=== PATIENT | male | born 1980 | race Caucasian/White ===

== ENCOUNTER 2023-03-23 12:14 | Emergency (ER) | payer SELFPAY ==
--- NOTE | 2023-03-23 12:55 | RAD REPORT ---
EXAM DESCRIPTION: Richie Single View03/23/2023 12:43 pm CLINICAL HISTORY: cough COMPARISON: none FINDINGS: The lungs appear clear of acute infiltrate. The heart is normal size IMPRESSION: No acute abnormalities displayed
[2023-03-23 13:04] LABS: Specific Gravity 1.015 (1.005-1.030); Urine Bilirubin NEGATIVE (Negative); Urine Blood Negative (Negative); Urine Clarity Clear (Clear); Urine Color Light-Yellow (Yellow); Urine Glucose NEGATIVE (Negative); Urine Protein NEGATIVE (Negative); Urine Urobilinogen Normal (Normal); Urine pH 5.5 (5.0-7.0)
[2023-03-23 13:05] LABS: Absolute Lymphocytes (CBC) 1.4 K/uL (0.7-4.9); Hematocrit 37.6 % (39.6-49.0); Lymphocytes % 11.7 % (15.3-44.8); MCV 88.8 fL (80-100); MPV 8.1 fL (7.6-11.3); Platelets 273 thou/uL (152-406); RBC Red Blood Cell Count 4.23 M/uL (4.33-5.43)
[2023-03-23] MEDS ORDERED: NA CHLORIDE 0.9% 2,000 ML ONE (13:11)
[2023-03-23 13:12] LABS: Protime INR 1.07
[2023-03-23 13:13] LABS: Barbiturates NEGATIVE (NEGATIVE); Benzodiazepines NEGATIVE (NEGATIVE); Cocaine NEGATIVE (NEGATIVE); METHAMPHETAM NEGATIVE (NEGATIVE); Methadone NEGATIVE (NEGATIVE); Opiates NEGATIVE (NEGATIVE); Phencyclidine NEGATIVE (NEGATIVE); THC Cannibis POSITIVE (NEGATIVE)
--- NOTE | 2023-03-23 13:21 | RAD REPORT ---
EXAM DESCRIPTION: CT - Head Brain Wo Cont - 03/23/2023 1:09 pm CLINICAL HISTORY: Alteration of awareness/confusion COMPARISON: None TECHNIQUE: Computed axial tomography of the head was obtained. IV contrast was not requested. All CT scans are performed using dose optimization technique as appropriate and may include automated exposure control or mA/KV adjustment according to patient size. FINDINGS: An intracranial bleed is not seen The ventricles are normal in caliber No extra-axial fluid collection is noted. No significant hyperdensity within the brain seen. Pansinusitis IMPRESSION: No acute intracranial abnormality is seen If patient's symptoms persist MRI of the brain would be recommended
[2023-03-23 13:28] LABS: ALT/SGPT 52 U/L (16-61); AST/SGOT 31 U/L (15-37); Albumin 3.1 g/dL (3.4-5.0); Alkaline Phosphatase 90 U/L (45-117); BUN Blood Urea Nitrogen 14 mg/dL (7-18); Bicarbonate 27 mEq/L (21-32); Bilirubin Direct 0.1 mg/dL (0-0.2); Bilirubin Indirect, Calculated 0.2 mg/dL (0.2-0.8); Bilirubin Total 0.3 mg/dL (0.2-1.0); Glomerular Filtration Rate 80 ml/min (=/>90); Glucose Level 112 mg/dL (74-106); Magnesium 1.9 mg/dL (1.6-2.4); NT PRO-BNP 27 pg/mL (<125); Protein, Total 6.9 g/dL (6.4-8.2); Sodium Level 138 mEq/L (136-145); Troponin High Sensitivity 5.1 pg/mL (<58.9)
[2023-03-23 13:38] LABS: SARS-CoV-2 Antigen Rapid Res Negative (Negative)
--- NOTE | 2023-03-23 15:10 | EDPHYS ---
Physician Documentation [facility] Name: Samuel Casanova Age: 43 yrs Sex: Male : 1980 Arrival Date: 03/23/2023 Time: 12:14 Bed 8 Private MD: ED Physician Jacob Nunez HPI: 03/23 15:03 This 43 yrs old Male presents to ER via EMS with complaints of AMS. aga 15:03 The patient presents with agitation. Onset: The symptoms/episode began/occurred this aga morning, today. Possible causes: drug use, unknown. Associated signs and symptoms: Pertinent positives: confusion. Current symptoms: In the emergency department the patient's symptoms have improved, moderately. Patient's baseline: Neuro: alert and fully oriented. Historical: - Allergies: 12:22 No Known Allergies; kc6 - Home Meds: 12:22 None [Active]; kc6 - PMHx: 12:22 Asthma; kc6 - PSHx: 12:22 None; kc6 - Immunization history:: Adult Immunizations unknown. - Social history:: Smoking status: unknown. ROS: 15:04 Constitutional: Negative for fever, chills, and weight loss, Eyes: Negative for injury, aga pain, redness, and discharge, ENT: Negative for injury, pain, and discharge, Neck: Negative for injury, pain, and swelling, Cardiovascular: Negative for chest pain, palpitations, and edema, Respiratory: Negative for shortness of breath, cough, wheezing, and pleuritic chest pain, Abdomen/GI: Negative for abdominal pain, nausea, vomiting, diarrhea, and constipation, Back: Negative for injury and pain, : Negative for injury, bleeding, discharge, and swelling, MS/Extremity: Negative for injury and deformity, Skin: Negative for injury, rash, and discoloration, Psych: Negative for depression, anxiety, suicide ideation, homicidal ideation, and hallucinations, Allergy/Immunology: Negative for hives, rash, and allergies, Endocrine: Negative for neck swelling, polydipsia, polyuria, polyphagia, and marked weight changes, Hematologic/Lymphatic: Negative for swollen nodes, abnormal bleeding, and unusual bruising. 15:04 Neuro: Positive for altered mental status. 15:04 Psych: Positive for anxiety. Exam: 15:04 Constitutional: This is a well developed, well nourished patient who is awake, alert, aga and in no acute distress. Head/Face: Normocephalic, atraumatic. Eyes: Pupils equal round and reactive to light, extra-ocular motions intact. Lids and lashes normal. Conjunctiva and sclera are non-icteric and not injected. Cornea within normal limits. Periorbital areas with no swelling, redness, or edema. ENT: Nares patent. No nasal discharge, no septal abnormalities noted. Tympanic membranes are normal and external auditory canals are clear. Oropharynx with no redness, swelling, or masses, exudates, or evidence of obstruction, uvula midline. Mucous membranes moist. Neck: Trachea midline, no thyromegaly or masses palpated, and no cervical lymphadenopathy. Supple, full range of motion without nuchal rigidity, or vertebral point tenderness. No Meningismus. Chest/axilla: Normal chest wall appearance and motion. Nontender with no deformity. No lesions are appreciated. Cardiovascular: Regular rate and rhythm with a normal S1 and S2. No gallops, murmurs, or rubs. Normal PMI, no JVD. No pulse deficits. Respiratory: Lungs have equal breath sounds bilaterally, clear to auscultation and percussion. No rales, rhonchi or wheezes noted. No increased work of breathing, no retractions or nasal flaring. Abdomen/GI: Soft, non-tender, with normal bowel sounds. No distension or tympany. No guarding or rebound. No evidence of tenderness throughout. Back: No spinal tenderness. No costovertebral tenderness. Full range of motion. Male : Normal genitalia with no discharge or lesions. Skin: Warm, dry with normal turgor. Normal color with no rashes, no lesions, and no evidence of cellulitis. MS/ Extremity: Pulses equal, no cyanosis. Neurovascular intact. Full, normal range of motion. Psych: Awake, alert, with orientation to person, place and time. Behavior, mood, and affect are within normal limits. 15:04 Neuro: Orientation: appropriate for stated age, no acute changes, Mentation: no acute changes, Memory: unable to test, Cranial nerves: grossly normal, is grossly normal based on the patient's age, Cerebellar function: is grossly normal, is grossly normal based on the patient's age, no acute changes, Motor: is normal, Sensation: is normal, appropriate Gait: not applicable Deep tendon reflexes are 2+ (normal) in the bilateral brachioradialis, bicep, tricep and patellar and Achilles tendons, Babinski testing is normal. 15:10 ECG was reviewed by the Attending Physician. aga 15:11 Neck: ROM/movement: is normal, is supple, without pain, no range of motions aga limitations, no meningismus, no nuchal rigidity, negative Brudzinski's sign, negative Kernig's sign, pain, is not appreciated, limited range of motion, is not appreciated, Meningeal signs: are not present, Kernig's sign is negative, Brudzinski's sign is negative, nuchal rigidity, is not appreciated. Vital Signs: 12:18 BP 130 / 81; Pulse 109; Resp 18 S; Temp 100(O); Pulse Ox 96% on R/A; Weight 74.84 kg kc6 (M); Height 5 ft. 11 in. (R); Pain 0/10; 13:30 BP 125 / 80; Pulse 99; Resp 16 S; Pulse Ox 99% on R/A; kc6 14:07 BP 128 / 84; Pulse 82; Resp 16 S; Pulse Ox 96% on R/A; kc6 15:04 Temp 98.2(O); kc6 12:18 Body Mass Index 23.01 (74.84 kg, 180.34 cm) kc6 12:18 Pain Scale: Adult kc6 MDM: 12:17 Patient medically screened. aga 15:04 Differential diagnosis: drug withdrawal. depression. Differential Diagnosis: CVA, aga electrolyte abnormality, alcohol intoxication, hypoglycemia, intracranial bleed, meningitis, pneumonia. Data reviewed: vital signs, nurses notes, lab test result(s), EKG, radiologic studies, CT scan, plain films. Consideration of Admission/Observation Escalation of care including admission/observation considered. Independent interpretation of the following test(s) in the Emergency Department EKG: See my EKG interpretation above. Test considered but Not performed: MRI: MRI BRAIN. Care significantly affected by the following chronic conditions: ASTHMA. 03/23 12:24 Order name: Basic Metabolic Panel; Complete Time: 13:51 [facility] 03/23 12:24 Order name: CBC with Diff; Complete Time: 13:23 [facility] 03/23 12:24 Order name: LFT's; Complete Time: 13:51 [facility] 03/23 12:24 Order name: Magnesium; Complete Time: 13:51 03/23 12:24 Order name: NT PRO-BNP; Complete Time: 13:51 03/23 12:24 Order name: PT-INR; Complete Time: 13:23 03/23 12:24 Order name: Troponin HS; Complete Time: 13:51 03/23 12:24 Order name: Acetaminophen; Complete Time: 13:51 03/23 12:24 Order name: ETOH Level; Complete Time: 13:23 03/23 12:24 Order name: Ptt, Activated; Complete Time: 13:23 03/23 12:24 Order name: Salicylate; Complete Time: 13:51 03/23 12:24 Order name: Urinalysis w/ reflexes; Complete Time: 13:23 03/23 12:24 Order name: Urine Drug Screen; Complete Time: 13:23 03/23 12:24 Order name: Flu; Complete Time: 13:51 [facility] 03/23 12:24 Order name: SARS RAPID; Complete Time: 13:51 [facility] 03/23 12:24 Order name: Strep [facility] 03/23 13:41 Order name: Throat Culture EDIN 03/23 12:24 Order name: XRAY Chest (1 view); Complete Time: 13:23 03/23 12:58 Order name: CT Head Brain wo Cont; Complete Time: 13:23 03/23 12:24 Order name: EKG; Complete Time: 12:25 [facility] 03/23 12:24 Order name: Cardiac monitoring; Complete Time: 12:28 [facility] 03/23 12:24 Order name: EKG - Nurse/Tech; Complete Time: 12:56 03/23 12:24 Order name: IV Saline Lock; Complete Time: 12:28 03/23 12:24 Order name: Labs collected and sent; Complete Time: 12:56 03/23 12:24 Order name: O2 Per Protocol; Complete Time: 12:28 [facility] 03/23 12:24 Order name: O2 Sat Monitoring; Complete Time: 12:28 [facility] 03/23 12:24 Order name: Suicide Screening ([place]); Complete Time: 12:27 aga 03/23 15:02 Order name: Misc. Order: TEMP; Complete Time: 15:04 aga EC:10 Rate is 101 beats/min. Rhythm is regular. QRS [place] is Normal. MT interval is normal. aga QRS interval is normal. QT interval is normal. No Q waves. T waves are Normal. No ST changes noted. Clinical impression: Sinus tachycardia and No evidence of ischemia. Interpreted by me. Reviewed by me. 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 aga Followup: aga - With: Private Physician - When: 2 - 3 days - Reason: Recheck today's complaints, Continuance of care, Re-evaluation by your physician Discharge Instructions: - Discharge Summary Sheet aga - Confusion aga - Substance Use Disorder aga - Substance Use Disorder and Mental Illness aga - Supporting Someone With Substance Use Disorder aga Forms: - Medication Reconciliation Form aga - Thank You Letter aga - Antibiotic Education aga - Prescription Opioid Use aga - Patient Portal Instructions aga - Leadership Thank You Letter aga Signatures: Dispatcher [employer] Jacob Patel MD MD cha Campbell, Kaitlyn, RN RN kc6
--- NOTE | 2023-03-23 15:10 | ER ---
Nurse's Notes [facility] Name: Samuel Casanova Age: 43 yrs Sex: Male : 1980 Arrival Date: 03/23/2023 Time: 12:14 Bed 8 Private MD: Diagnosis: Altered mental status, unspecified;Abuse of other non-psychoactive substances-POT Presentation: 03/23 12:18 Chief complaint: EMS states: pt was driving, evading [employer]. once pt was pulled over he kc6 was found to be on the phone calling EMS. pt in custody upon EMS arrival to ED. BGL en route 117. 2mg IV Ativan given en route. Coronavirus screen: At this time, the client does not indicate any symptoms associated with coronavirus-19. Ebola Screen: No symptoms or risks identified at this time. Initial Sepsis Screen: Does the patient meet any 2 criteria? HR > 90 bpm. No. Patient's initial sepsis screen is negative. Does the patient have a suspected source of infection? No. Patient's initial sepsis screen is negative. Risk Assessment: Do you want to hurt yourself or someone else? Patient reports no desire to harm self or others. Onset of symptoms was March 23, 2023. 12:18 Method Of Arrival: EMS: [facility] kc6 12:18 Acuity: JASPER 2 kc6 Triage Assessment: 12:22 General: Appears in no apparent distress. comfortable, Behavior is calm, cooperative, kc6 appropriate for age. Pain: Denies pain. EENT: No signs and/or symptoms were reported regarding the EENT system. Neuro: Level of Consciousness is awake, alert, obeys commands, Oriented to person, time, situation, Appropriate for age Reports auditory and visual hallucinations. Cardiovascular: Denies chest pain, Heart tones S1 S2 present Capillary refill < 3 seconds Rhythm is sinus tachycardia. Respiratory: Airway is patent Trachea midline Respiratory effort is even, unlabored, Respiratory pattern is regular, symmetrical, Denies shortness of breath. GI: No signs and/or symptoms were reported involving the gastrointestinal system. : No signs and/or symptoms were reported regarding the genitourinary system. Derm: No signs and/or symptoms reported regarding the dermatologic system. Skin is intact, is healthy with good turgor, Skin is pink, warm \T\ dry. Musculoskeletal: No signs and/or symptoms reported regarding the musculoskeletal system. Circulation, motion, and sensation intact. Capillary refill < 3 seconds, Range of motion: intact in all extremities. Historical: - Allergies: 12:22 No Known Allergies; kc6 - Home Meds: 12:22 None [Active]; kc6 - PMHx: 12:22 Asthma; kc6 - PSHx: 12:22 None; kc6 - Immunization history:: Adult Immunizations unknown. - Social history:: Smoking status: unknown. Screenin:23 [facility] ED Fall Risk Assessment (Adult) History of falling in the last 3 months, kc6 including since admission No falls in past 3 months (0 pts) Confusion or Disorientation No (0 pts) Intoxicated or Sedated Yes (3 pts) Impaired Gait No (0 pts) Mobility Assist Device Used No (0 pt) Altered Elimination No (0 pt) Score/Fall Risk Level 0 - 2 = Low Risk. Abuse screen: Denies threats or abuse. Denies injuries from another. Nutritional screening: No deficits noted. Tuberculosis screening: No symptoms or risk factors identified. Assessment: 12:18 Reassessment: please see triage assessment. kc 13:18 Reassessment: Patient appears in no apparent distress at this time. No changes from [facility] previously documented assessment. Patient and/or family updated on plan of care and expected duration. Pain level reassessed. Patient is alert, oriented x 3, equal unlabored respirations, skin warm/dry/pink. 14:07 Reassessment: Patient appears in no apparent distress at this time. No changes from [facility] previously documented assessment. Patient and/or family updated on plan of care and expected duration. Pain level reassessed. Patient is alert, oriented x 3, equal unlabored respirations, skin warm/dry/pink. 15:04 Reassessment: Patient appears in no apparent distress at this time. No changes from [facility] previously documented assessment. Patient and/or family updated on plan of care and expected duration. Pain level reassessed. Patient is alert, oriented x 3, equal unlabored respirations, skin warm/dry/pink. Vital Signs: 12:18 BP 130 / 81; Pulse 109; Resp 18 S; Temp 100(O); Pulse Ox 96% on R/A; Weight 74.84 kg kc6 (M); Height 5 ft. 11 in. (R); Pain 0/10; 13:30 BP 125 / 80; Pulse 99; Resp 16 S; Pulse Ox 99% on R/A; kc6 14:07 BP 128 / 84; Pulse 82; Resp 16 S; Pulse Ox 96% on R/A; kc6 15:04 Temp 98.2(O); kc6 12:18 Body Mass Index 23.01 (74.84 kg, 180.34 cm) kc6 12:18 Pain Scale: Adult kc6 ED Course: 12:17 Patient arrived in ED. aga 12:17 Jacob Nunez MD is Attending Physician. aga 12:20 Triage completed. kc6 12:22 Arm band placed on. kc6 12:23 Maintain EMS IV. Dressing intact. Good blood return noted. Site clean \T\ dry. Gauge \T\ julia 6 site: 20G LFA. Patient maintains SpO2 saturation greater than 95% on room air. 12:24 Patient has correct armband on for positive identification. Bed in low position. Call kc6 light in reach. Side rails up X2. Security at bedside. Client placed on continuous cardiac and pulse oximetry monitoring. NIBP monitoring applied. vehicle monitor technician on. 12:44 XRAY Chest (1 view) In Process Unspecified. EDMS 12:56 Beckie García, RN is Primary Nurse. kc6 13:11 CT Head Brain wo Cont In Process Unspecified. EDMS 13:16 CT completed. Patient tolerated procedure well. Patient moved back from CT. mw3 15:22 No provider procedures requiring assistance completed. IV discontinued, intact, kc6 bleeding controlled, No redness/swelling at site. Pressure dressing applied. Administered Medications: 13:03 Drug: NS 0.9% IV 1000 ml Route: IV; Rate: 1 bolus; Site: left forearm; kc6 15:05 Follow up: Response: No adverse reaction; IV Status: Completed infusion; IV Intake: kc6 1000ml 13:03 Drug: NS 0.9% IV 1000 ml Route: IV; Rate: 1 bolus; Site: left forearm; kc6 15:05 Follow up: Response: No adverse reaction; IV Status: Completed infusion; IV Intake: kc6 1000ml Medication: 15:22 VIS not applicable for this client. kc6 Intake: 15:05 IV: 1000ml; Total: 1000ml. kc6 15:05 IV: 1000ml; Total: 2000ml. kc6 Outcome: 15:09 Discharge ordered by MD. yung 15:22 Discharged to Law Enforcement kc6 15:22 Condition: improved 15:22 Discharge instructions given to patient, police, Instructed on discharge instructions, follow up and referral plans. Demonstrated understanding of instructions, follow-up care. 15:26 Patient left the ED. kc6 Signatures: Dispatcher [employer] EDJacob Hoff MD MD cha Willis, Michelle 3 Beckie García RN RN kc6 Corrections: (The following items were deleted from the chart) 12:25 12:22 Neuro: Level of Consciousness is awake, alert, obeys commands, Oriented to kc6 person, time, situation, Appropriate for age kc6
[2023-03-23 15:35] VITALS: BP 128/84; O2SAT 96
[2023-03-23 15:36] VITALS: TEMP 98.2
--- NOTE | 2023-03-25 19:08 | EKG ---
Test Date: 2023-03-23 Test Time: 12:43:30 Paper Slitter: EL MEASUREMENT RESULTS: Intervals: Rate: 101 ND: 138 QRSD: 100 QT: 356 QTc: 461 [place]: P: 44 ND: 138 QRS: 31 T: 48 INTERPRETIVE STATEMENTS: Sinus tachycardia Otherwise normal ECG No previous ECG available for comparison Electronically Signed On 03-25-23 19:05:34 CDT by Baljinder Lindsay
== END 2023-03-23 15:26 | disposition home or self-care (01) ==
LOC: ER 12:14
DX: F12.10 Cannabis abuse, uncomplicated (principal)
CPT/HCPCS: 36415; 70450; 71045; 80048; 80076; 80143; 80179; 80307; 81003; 82077; 83735; 83880; 84484; 85025; 85610; 85730; 87070; 87081; 87804; 87811; 93005; 96360; 96361; 99285; J7030